=== PATIENT | female | born 1980 | race Caucasian/White ===

== ENCOUNTER 2023-09-20 10:34 | Outpatient (CLI) | payer OTHER, SELFPAY | END 2023-09-20 10:35 | disposition home or self-care (01) | LOC: AMB 09-25 07:49 | PROVIDERS: PCP Family Medicine; Visit Provider Student in an Organized Health Care Education/Training Program | DX: M25.562 Pain in left knee (principal) | CPT/HCPCS: A0998 ==

== ENCOUNTER 2024-11-23 10:44 | Outpatient (CLI) | payer BC, SELFPAY ==
--- NOTE | 2024-11-23 12:26 | P.ANES_ITS ---
Anesthesia Charges Start Date/Time Anesthesia Start Date: 11/23/24 Anesthesia Start Time: 11:55 Stop Date/Time Anesthesia Stop Date: 11/23/24 Anesthesia Stop Time: 12:23 Coding CPT Codes CPT Codes: RED LWR INTST SCR COLSC - 68586 ([id number]) P2 - PATIENT W/MILD SYST DISEASE, QX - SCARRER SVC W/ MD MED DIRECTION, QK - FINANCE INSURANCE MANAGER 2-4 CNCRNT ANES PROC
--- NOTE | 2024-11-23 12:26 | W.ANESCHARGE ---
Anesthesia Charges Start Date/Time Anesthesia Start Date: 11/23/24 Anesthesia Start Time: 11:55 Stop Date/Time Anesthesia Stop Date: 11/23/24 Anesthesia Stop Time: 12:23 Coding CPT Codes CPT Codes: RED LWR INTST SCR COLSC - 55171 ([id number]) P2 - PATIENT W/MILD SYST DISEASE, QX - DEPUTY BRAND INSPECTOR SVC W/ MD MED DIRECTION, QK - WEB CONTENT DEVELOPER 2-4 CNCRNT ANES PROC
--- NOTE | 2024-11-23 12:33 | P.ANES_ITS ---
Anesthesia Charges Start Date/Time Anesthesia Start Date: 11/23/24 Anesthesia Start Time: 11:55 Stop Date/Time Anesthesia Stop Date: 11/23/24 Anesthesia Stop Time: 12:23 Coding CPT Codes CPT Codes: RED LWR INTST SCR COLSC - 58916 ([id number]) QK - THIRD RAIL INSTALLER 2-4 CNCRNT RED PROC, QX - WAISTLINE JOINER SVC W/ MD MED DIRECTION, P2 - PATIENT W/MILD SYST DISEASE
--- NOTE | 2024-11-23 12:33 | W.ANESCHARGE ---
Anesthesia Charges Start Date/Time Anesthesia Start Date: 11/23/24 Anesthesia Start Time: 11:55 Stop Date/Time Anesthesia Stop Date: 11/23/24 Anesthesia Stop Time: 12:23 Coding CPT Codes CPT Codes: RED LWR INTST SCR COLSC - 33254 ([id number]) QK - VISUAL EFFECTS EDITOR 2-4 CNCRNT RED PROC, QX - SEAM STAY STITCHER SVC W/ MD MED DIRECTION, P2 - PATIENT W/MILD SYST DISEASE
== END 2024-11-23 10:45 | disposition home or self-care (01) ==
LOC: OP CLINIC 10:48
PROVIDERS: PCP Family Medicine; Visit Provider Internal Medicine Gastroenterology
DX: Z12.11 Encounter for screening for malignant neoplasm of colon (principal)
CPT/HCPCS: 00812; 45378; J2704